=== PATIENT | male | born 1985 | race African-American/Black ===

== ENCOUNTER 2022-09-19 12:18 | Emergency (ER) | payer MEDICAID ==
[~2022-09-19] VITALS: Ht 175.3 cm; Wt 86.2 kg
[2022-09-19 12:27] VITALS: BP 141/86
--- NOTE | 2022-09-19 13:45 | NUR ---
called, no answer
--- NOTE | 2022-09-19 14:13 | NUR ---
called to room-in,no answer
== END 2022-09-19 14:17 | disposition left against medical advice (07) ==
LOC: ER 12:23
DX: Z53.21 Procedure and treatment not carried out due to patient leaving prior to being seen by health care provider (principal)

== ENCOUNTER 2023-02-15 16:13 | Emergency (ER) | payer MEDICAID ==
[~2023-02-15] VITALS: Ht 175.3 cm; Wt 89.4 kg
--- NOTE | 2023-02-15 17:00 | NUR ---
BIBS c/o sorethroat x 2 weeks.
--- NOTE | 2023-02-15 17:30 | NUR ---
AT BEDSIDE FOR EVAL.
[2023-02-15] MEDS ORDERED: AZIT500T PO (17:48)
[2023-02-15] MEDS ORDERED: DEXAMETHASONE SOD PHOSPHATE 10 MG/ML VIAL ONE (17:55)
[2023-02-15] MEDS ORDERED: DEXAMETHASONE SOD PHOSPHATE 10 MG/ML VIAL MC ONE (18:00)
--- NOTE | 2023-02-15 18:00 | NUR ---
Patient discharged to home in stable condition. Written and verbal after care instructions given. Patient verbalizes understanding of instruction.
[2023-02-15 18:02] VITALS: BP 125/75
== END 2023-02-15 18:00 | disposition home or self-care (01) ==
LOC: ER 16:22
DX: J02.9 Acute pharyngitis, unspecified (principal); Z79.899 Other long term (current) drug therapy
CPT/HCPCS: 99283; J1100

== ENCOUNTER 2023-03-11 16:43 | Emergency (ER) | payer MEDICAID ==
[~2023-03-11] VITALS: Ht 175.3 cm; Wt 90.7 kg
[~2023-03-11 16:43] MED LIST: AZIT500T PO
[2023-03-11 17:00] VITALS: BP 146/91; TEMP 98.6
[2023-03-11] MEDS ORDERED: CEPH500C2 PO (17:15)
--- NOTE | 2023-03-11 18:13 | NUR ---
Patient discharged to home in stable condition. Written and verbal after care instructions given. Patient verbalizes understanding of instruction.
== END 2023-03-11 18:13 | disposition home or self-care (01) ==
LOC: ER 16:44
DX: L60.0 Ingrowing nail (principal); Z79.899 Other long term (current) drug therapy

== ENCOUNTER 2023-07-01 21:14 | Emergency (ER) | payer MEDICAID ==
[~2023-07-01] VITALS: Ht 175.3 cm; Wt 81.6 kg
[~2023-07-01 21:14] MED LIST changes: +CEPH500C2 PO
[2023-07-01 22:02] LABS: BASOPHILS % (AUTO) 0.3 % (0.0-2.0); EOSINOPHILS # (AUTO) 0.1 K/uL (0.0-0.7); EOSINOPHILS % (AUTO) 0.8 % (0.0-6.0); HEMATOCRIT 42 % (39-51); HEMOGLOBIN 14.3 g/dL (13.5-17.5); LYMPHOCYTES # (AUTO) 1.7 K/uL (0.8-4.8); LYMPHOCYTES % (AUTO) 20.5 % (20.0-44.0); MEAN CORPUSCULAR HEMOGLOBIN 30 PG (26.0-33.0); MEAN CORPUSCULAR HGB CONC 34 g/dl (31.0-36.0); MEAN CORPUSCULAR VOLUME 91 fL (80-96); MONOCYTES # (AUTO) 0.6 K/uL (0.1-1.30); MONOCYTES % (AUTO) 6.9 % (2.0-12.0); NEUTROPHILS # (AUTO) 5.8 K/uL (1.8-8.9); NEUTROPHILS % (AUTO) 71.5 % (43.0-81.0); PLATELET COUNT (AUTO) 225 K/uL (150-450); RED BLOOD CELL COUNT(AUTO) 4.69 MIL/uL (4.5-6.0); RED CELL DISTRIBUTION WIDTH 13.5 % (11.5-15.0); WHITE BLOOD COUNT (AUTO) 8.2 K/uL (4.3-11.0)
[2023-07-02] MEDS ORDERED: IBUPROFEN 400 MG TABLET PO ONE (00:30)
[2023-07-02] MEDS ORDERED: IBUPROFEN 400 MG TABLET ONE (00:44)
[2023-07-02 01:31] VITALS: BP 142/97; TEMP 98.4; O2SAT 96
== END 2023-07-02 01:31 | disposition home or self-care (01) ==
LOC: ER 21:23
DX: M79.605 Pain in left leg (principal); M54.2 Cervicalgia; M25.531 Pain in right wrist; Z79.899 Other long term (current) drug therapy; V89.2XXA Person injured in unspecified motor-vehicle accident, traffic, initial encounter; Y93.89 Activity, other specified; Y92.89 Other specified places as the place of occurrence of the external cause; Y99.8 Other external cause status
CPT/HCPCS: 36415; 71045-TC; 72050-TC; 73080-TC; 73110; 73552; 73590-TC; 85025-TC

== ENCOUNTER 2024-01-24 11:44 | Emergency (ER) | payer MEDICAID ==
[~2024-01-24] VITALS: Ht 167.6 cm; Wt 68.9 kg
[2024-01-24] MEDS ORDERED: LIDOCAINE 1% INJ 50 ML MDV IJ ONE (11:57)
[2024-01-24] MEDS ORDERED: IBUP-1955 PO (12:04)
[2024-01-24] MEDS ORDERED: CEPH500C2 PO (14:31)
[2024-01-24 14:37] VITALS: BP 138/94; TEMP 98.3; O2SAT 98
== END 2024-01-24 14:37 | disposition home or self-care (01) ==
LOC: ER 11:51
DX: S61.210A Laceration without foreign body of right index finger without damage to nail, initial encounter (principal); S61.212A Laceration without foreign body of right middle finger without damage to nail, initial encounter; S61.111A Laceration without foreign body of right thumb with damage to nail, initial encounter; X83.8XXA Intentional self-harm by other specified means, initial encounter; Y93.89 Activity, other specified; Y92.89 Other specified places as the place of occurrence of the external cause; Y99.8 Other external cause status
CPT/HCPCS: 11730; 12002; 73130; 99284; A6403; J3490

== ENCOUNTER 2024-01-31 11:04 | Emergency (ER) | payer MEDICAID ==
[~2024-01-31] VITALS: Ht 175.3 cm; Wt 86.2 kg
[~2024-01-31 11:04] MED LIST changes: +IBUP-1955 PO
[2024-01-31 11:39] VITALS: BP 116/75; TEMP 98.1; O2SAT 98
== END 2024-01-31 11:58 | disposition home or self-care (01) ==
LOC: ER 11:09
DX: S61.211D Laceration without foreign body of left index finger without damage to nail, subsequent encounter (principal); Z48.02 Encounter for removal of sutures; X58.XXXD Exposure to other specified factors, subsequent encounter